=== PATIENT | female | born 2000 | race Caucasian/White ===

== ENCOUNTER → 2020-11-30 14:33 | Outpatient (CLI) | payer BC, SELFPAY ==
--- NOTE | ~2020-11-30 | US_ITS ---
EXAMINATION: US soft tissue head and neck EXAM DATE: 11/30/2020 14:59 INDICATION: Palpable areas in neck. TECHNIQUE: Multiple grayscale and Doppler images of the symptomatic bilateral neck palpable abnormali ty were obtained (by a technologist who performed the scan) and subsequently reviewed. There is no p rior study for comparison. FINDINGS: Scanning in the area of concern demonstrates small bilateral masses, consistent with lymph nodes. The se are within normal size limits and have normal morphology. IMPRESSION: 1. Small cervical lymph nodes. Reviewed, dictated and finalized at location B. R MECHANIC
== END ==
PROVIDERS: PCP Internal Medicine; Visit Provider Internal Medicine
DX: R59.1 Generalized enlarged lymph nodes (principal)
CPT/HCPCS: 76536